=== PATIENT | female | born 1985 | race Caucasian/White ===

== ENCOUNTER 2017-04-17 08:19 | Emergency (ER) | payer BC ==
[2017-04-17 08:33] VITALS: BP 116/72; PULSE 101; TEMP 98.5; BMI 22.6
--- NOTE | 2017-04-17 08:47 | PDOC ---
History of Present Illness - General Chief Complaint: Chest Pain Stated Complaint: CHEST PAIN/ SOB Time Seen by Provider: 04/17/17 08:46 - History of Present Illness Initial Comments: 31 year old previously healthy female with Mirena IUD (place 2 years ago) presenting with sudden onset central chest pain and back pain with SOB and generalized warmth. States that it woke her up out of bed this AM and she felt generally warm and had trouble breathing. The chest pain is a central pressure 7 /10 and possibly radiates to the back. The chest pain is worse with cough and better when laying down but not better with leaning forward. Denies travel, recent illness, fevers, chills, nausea, vomiting, diarrhea, cough, or recent sick contacts. 04/17/17 10:44 Past History - Past Medical History Allergies/Adverse Reactions: Allergies Allergy/AdvReac Type Severity Reaction Status Date / Time No Known Allergies Allergy Verified 04/17/17 08:33 Home Medications: Ambulatory Orders NK [No Known Home Medication] 04/17/17 Asthma: No Cancer: No Cardiac Disorders: No COPD: No DVT: No Diabetes: No HTN: No Seizures: No Thyroid Disease: No - Reproductive History (#): 4 Para: 2 Cervical CA: No Dysfunctional Uterine Bleeding: No Ectopic : No Endometrial CA: No Polycystic Ovaries: No Therapeutic (s) & number: No Tubal Ligation: No Spontaneous : 1 - Immunization History Td Vaccination: Yes TDAP Vaccination: Yes Immunization Up to Date: Yes - Suicide/Smoking/Psychosocial Hx Smoking Status: No Smoking History: Never smoked Years of Tobacco Use: 0 Have you smoked in the past 12 months: No Number of Cigarettes Smoked Daily: 0 Cigars Per Day: 0 Information on smoking cessation initiated: No Hx Alcohol Use: No Drug/Substance Use Hx: No Substance Use Type: None Hx Substance Use Treatment: No Review of Systems - Review of Systems Constitutional: Yes: Other (warmth). No: Chills, Diaphoresis, Fever HEENTM: No: Blurred Vision, Double Vision Respiratory: Yes: Shortness of Breath. No: Cough Cardiac (ROS): Yes: Chest Pain. No: Edema, Irregular Heart Rate : No: Burning, Dysuria Musculoskeletal: Yes: Back Pain Integumentary: No: Bruising, Lesions Neurological: No: Headache, Numbness, Paresthesia Psychiatric: No: Anxiety, Depression Endocrine: No: Excessive Sweating, Intolerance to Cold Hematologic/Lymphatic: No: Blood Clots, Easy Bleeding, Easy Bruising *Physical Exam - Vital Signs Last Vital Signs Temp Pulse Resp BP Pulse Ox 98.5 F 101 H 16 116/72 100 04/17/17 08:29 04/17/17 08:29 04/17/17 08:29 04/17/17 08:29 04/17/17 08:29 - Physical Exam General Appearance: Yes: Nourished, Appropriately Dressed. No: Apparent Distress HEENT: positive: EOMI, MACARIO, Normal ENT Inspection, Normal Voice Neck: positive: Trachea midline, Normal Thyroid, Supple. negative: Tender, Rigid Respiratory/Chest: positive: Lungs Clear, Normal Breath Sounds. negative: Chest Tender, Respiratory Distress, Accessory Muscle Use Cardiovascular: positive: Regular Rhythm, Tachycardia. negative: Regular Rate Gastrointestinal/Abdominal: positive: Normal Bowel Sounds, Flat, Soft. negative : Tender Musculoskeletal: positive: Normal Inspection. negative: CVA Tenderness Extremity: positive: Normal Capillary Refill, Normal Inspection, Normal Range of Motion Integumentary: positive: Normal Color, Dry, Warm Neurologic: positive: Fully Oriented, Normal Mood/Affect, Normal Response, Motor Strength 5/5 ED Treatment Course - LABORATORY CBC & Chemistry Diagram: 04/17/17 09:45 04/17/17 09:45 Medical Decision Making - Medical Decision Making Healthy 31 year old female presenting with sudden onset chest pain, sob, and warmth with sinus tachycardia noted in our ED. D-dimer, troponins, and EKG WNL. CXR WNL, Labs WNL. Will send home with return precautions and follow up with PCP. 04/17/17 12:31 *DC/Admit/Observation/Transfer Diagnosis at time of Disposition: Chest pain Qualifiers: Chest pain type: chest pain on breathing Qualified Code(s): R07.1 - Chest pain on breathing - Discharge Dispostion Disposition: HOME Condition at time of disposition: Improved Admit: No - Referrals Referrals: Lorelei Turner MD [Primary Care Provider] - - Patient Instructions Printed Discharge Instructions: DI for Atypical Chest Pain Additional Instructions: Your labs were fine and your chest xray was also fine. You do not have a clot in your lung. Please follow up with your primary care physician within the next few days. Please return to the ED if you have worsening chest pain, fever, nausea, vomiting, or other concerning symptoms. - Post Discharge Activity
--- NOTE | 2017-04-17 08:54 | PDOC ---
Attending Attestation - Resident Resident Name: Tevin Mayfield - HPI HPI: 04/17/17 11:18 Pt presents to the ED complaining of chest pain and shortness of breath that awoke her from sleep at 5 am. Denies fever or cough. Denies prior history of similar pain. Patient is currently using Mirena for control. symptoms have improved while in the ED. 04/17/17 11:20 - Physicial Exam PE: 04/17/17 11:19 Agree with resident exam. Patient is no longer tachycardic, and is resting comfortably in the stretcher. Lungs are clear. Regular rate and rhythm on heart exam without murmurs rubs or gallops. - Medical Decision Making 04/17/17 11:20 Pt presents to the ED complaining of shortness of breath, chest pain and palpitations. Cannot rule out patient with PERC due to HR and exogenous estrogen, but she is low risk via wells criteria and D dimer is negative. PE is therefore unlikely. EKG is normal. Labs checked to rule out TX or severe anemia and are normal. Will check CXR, likely discharge home if negative.
[2017-04-17 09:59] LABS: HEMATOCRIT 40.1 % (32.4-45.2); HEMOGLOBIN 13.1 GM/dL (10.7-15.3); MCHC 32.6 g/dl (32.0-36.0); MEAN CELL VOLUME 85.9 fl (80-96); MEAN PLT VOLUME 8.7 fl (7.5-11.1); PLATELET COUNT 231 K/MM3 (134-434); RBC 4.67 M/mm3 (3.60-5.2); RDW 13.3 % (11.6-15.6); WHITE BLOOD COUNT 5.6 K/mm3 (4.0-10.0)
[2017-04-17 10:41] LABS: ALBUMIN 4.2 g/dl (3.4-5.0); ANION GAP 7 (8-16); BLOOD UREA NITROGEN 8 mg/dL (7-18); CALCIUM 8.7 mg/dL (8.5-10.1); CHLORIDE 105 mmol/L (98-107); CO2 27 mmol/L (21-32); CREATININE 0.6 mg/dL (0.55-1.02); GLUCOSE,RANDOM 83 mg/dL (74-106); POTASSIUM 4.1 mmol/L (3.5-5.1); SGOT/AST 8 U/L (15-37); SGPT/ALT 16 U/L (12-78); SODIUM 139 mmol/L (136-145)
[2017-04-17 10:47] LABS: ALK PHOS 56 U/L (45-117); BILIRUBIN,TOTAL 0.5 mg/dL (0.2-1.0); TOT PROT 7.5 g/dl (6.4-8.2)
[2017-04-17 14:11] LABS: URINE APPEARANCE SLCLOUDY; URINE BILIRUBIN NEGATIVE (NEGATIVE); URINE BLOOD 1+ (NEGATIVE); URINE COLOR LTYELLOW; URINE GLUCOSE (UA) NEGATIVE (NEGATIVE); URINE KETONE NEGATIVE (NEGATIVE); URINE NITRITE NEGATIVE (NEGATIVE); URINE PROTEIN NEGATIVE (NEGATIVE); URINE UROBILINOGEN NEGATIVE mg/dL (0.2-1.0)
[2017-04-17 14:26] LABS: URINE LEUK ESTERASE 3+ (NEGATIVE)
--- NOTE | 2017-04-18 12:40 | EKG ---
Test Reason : Blood Pressure : / mmHG Vent. Rate : 095 BPM Atrial Rate : 095 BPM P-R Int : 146 ms QRS Dur : 088 ms QT Int : 382 ms P-R-T Axes : 074 074 062 degrees QTc Int : 480 ms NORMAL SINUS RHYTHM PROLONGED QT ABNORMAL ECG WHEN COMPARED WITH ECG OF 30-JAN-2014 15:31, NO SIGNIFICANT CHANGE WAS FOUND Confirmed by WILLA MEDINA MD ([id number]) on 04/18/2017 12:40:03 PM Referred By: Confirmed By:WILLA MEDINA MD
== END 2017-04-17 12:41 | disposition home or self-care (01) ==
LOC: JER 08:19
DX: R07.1 Chest pain on breathing (principal)
CPT/HCPCS: 36415; 71046-TC-FY; 80053; 81003; 81015; 82550; 84484; 84702; 85027; 85379; 87077; 87086; 93005; 93010; 99282-25

== ENCOUNTER 2019-06-06 07:10 | Inpatient (IN) | payer BC ==
[2019-06-06 08:45] VITALS: BMI 30.2
[2019-06-06 09:04] LABS: BASO % 0.3 % (0-2.0); EOS % 0.4 % (0-4.5); HEMATOCRIT 33.2 % (32.4-45.2); HEMOGLOBIN 11.7 GM/dL (10.7-15.3); LYMPH % 15.7 % (8-40); MCH 31.9 pg (25.7-33.7); MCHC 35.1 g/dl (32.0-36.0); MEAN CELL VOLUME 90.9 fl (80-96); MEAN PLT VOLUME 8.4 fl (7.5-11.1); MONO % 8.6 % (3.8-10.2); PLATELET COUNT 216 K/MM3 (134-434); RBC 3.65 M/mm3 (3.60-5.2); RDW 13.3 % (11.6-15.6); WHITE BLOOD COUNT 7.5 K/mm3 (4.0-10.0)
[2019-06-06 09:15] LABS: INR 1.04 (0.83-1.09); PROTHROMBIN TIME (PATIENT) 12.3 SEC (9.7-13.0)
[2019-06-06 09:18] LABS: ACTIVATED PTT 29.3 SECONDS (25.2-36.5)
[2019-06-06 09:27] LABS: BLOOD UREA NITROGEN 3.6 mg/dL (7-18); CALCIUM 8.4 mg/dL (8.5-10.1); CREATININE 0.4 mg/dL (0.55-1.3); POTASSIUM 3.6 mmol/L (3.5-5.1)
[2019-06-06] MEDS ORDERED: DINOPROSTONE 10 MG VAGINAL SUPPOSITORY VG ONE (09:50)
--- NOTE | 2019-06-06 09:56 | HP ---
Past Medical History - Primary Care Physician PCP:: Sanju Barba - Admission Chief Complaint: 39,6 weeks, multiparity , for induction History Source: Patient Limitations to Obtaining History: No Limitations - Past Medical History ...: 5 ...Para: 3 ...Term: 3 ...: 1 ...Spon : 0 ...Induced : 0 ...Multiple Gestation: 1 ...LMP: 09/01/18 ... Weeks Gestation by Dates: 39.5 ...EDC by Dates: 06/07/18 ...EDC by Sono: 06/07/18 - Past Surgical History Hx Myomectomy: No Hx Transabdominal Cerclage: No - Smoking History Smoking history: Never smoked Have you smoked in the past 12 months: No Aproximately how many cigarettes per day: 0 - Alcohol/Substance Use Hx Alcohol Use: No - Social History Usual Living Arrangement: Yes: With Spouse ADL: Independent Occupation: homemaker History of Recent Travel: No Home Medications - Allergies Allergies/Adverse Reactions: Allergies Allergy/AdvReac Type Severity Reaction Status Date / Time No Known Allergies Allergy Verified 04/17/17 08:33 - Home Medications Home Medications: Ambulatory Orders NK [No Known Home Medication] 04/17/17 Review of Systems - Review of Systems Constitutional: reports: No Symptoms Eyes: reports: No Symptoms HENT: reports: No Symptoms Neck: reports: No Symptoms Cardiovascular: reports: No Symptoms Respiratory: reports: No Symptoms Gastrointestinal: reports: No Symptoms Genitourinary: reports: No Symptoms Breasts: reports: No Symptoms Reported Musculoskeletal: reports: No Symptoms Integumentary: reports: No Symptoms Neurological: reports: No Symptoms Endocrine: reports: No Symptoms Hematology/Lymphatic: reports: No Symptoms Psychiatric: reports: No Symptoms Physical Exam - Maternity Vital Signs: Vital Signs Temperature 98.6 F 06/06/19 08:30 Pulse Rate 101 H 06/06/19 08:30 Respiratory Rate 18 06/06/19 08:30 Blood Pressure 96/56 L 06/06/19 08:30 O2 Sat by Pulse Oximetry (%) Constitutional: Yes: Well Nourished, No Distress, Calm Eyes: Yes: WNL, Conjunctiva Clear, EOM Intact HENT: Yes: WNL, Atraumatic, Normocephalic Neck: Yes: WNL, Supple, Trachea Midline Cardiovascular: Yes: WNL, Regular Rate and Rhythm Breast(s): Yes: WNL - Abdominal Exam/OB Fundal Height: 40 Number of Fetuses: Single Presentation: Vertex Contractions: No Intensity: Unaware Monitor Mode: External Heart Rate Location: [facility] Category: I Accelerations: Non-Uniform Decelerations: None - Vaginal Exam/OB Vaginal Bleediing: No Speculum Exam: No Dilatation (cm): 1 cm Effacement (%): 25 Amniotic Membrane Status: Intact Station: -4 - Physical Exam Edema: LLE: Trace, RLE: Trace Integumentary: Yes: WNL Deep Tendon Reflex Grade: Normal +2 Psychiatric: Yes: WNL - Labs Lab Results: CBC, BMP 06/06/19 08:45 06/06/19 08:45 Hemorrhage Risk Assessment - Risk Factors Medium Risk Factors: Yes: Multiple gestation Risk Score: 1 Risk Level: Medium Risk Problem List - Problems (1) with 39 completed weeks gestation Code(s): Z3A.39 - 39 WEEKS GESTATION OF (2) Elective induction of labor planned Code(s): CBJ1605 - Assessment/Plan admit for cervidil induction
--- NOTE | 2019-06-06 17:16 | PN ---
Progress Note (short form) - Note Progress Note: cx 2 cm 50 vx -3 mi, fhr cat 1, irregular contraction Problem List - Problems (1) with 39 completed weeks gestation Code(s): Z3A.39 - 39 WEEKS GESTATION OF (2) Elective induction of labor planned Code(s): [id number] -
[2019-06-06] MEDS ORDERED: PROMETHAZINE HCL 25 MG/1 ML VIAL IVPUSH ONE (21:19)
[2019-06-06] MEDS: DEXTROSE 5%-LACTATED RINGERS 1,000 ML IV SCH (21:30)
[2019-06-06] MEDS ORDERED: BUTORPHANOL TARTRATE 1 MG/ML VIAL IVPUSH ONE (21:30)
[2019-06-06] MEDS ORDERED: AMPICILLIN SODIUM 2 GM VIAL ONE (22:22)
[2019-06-06] MEDS ORDERED: OXYTOCIN 20 UNITS in 0.9% NS 20 UNIT/1,000 ML INFUS.BAG IV ONE (22:23)
[2019-06-06] MEDS ORDERED: AMPICILLIN - 2 GM in SODIUM CHLORIDE 100 ML IVPB STA (23:00)
[2019-06-07] MEDS ORDERED: CITRIC ACID/SODIUM CITRATE 30 ML UNIT-DOSE CUP PO ONE (02:00)
[2019-06-07] MEDS ORDERED: OXYTOCIN 30 UNITS in 0.9% NS 30 UNIT/500 ML INFUS.BAG IVPB SCH (02:00)
[2019-06-07] MEDS: DEXTROSE 5%-LACTATED RINGERS 1,000 ML IV SCH (05:00)
[2019-06-07] MEDS: AMPICILLIN - 1 GM in SODIUM CHLORIDE 100 ML IVPB SCH ×5 (06:11→17:28)
[2019-06-07] MEDS ORDERED: OXYTOCIN 30 UNITS in 0.9% NS 30 UNIT/500 ML INFUS.BAG IVPB ONE (08:21)
[2019-06-07] MEDS ORDERED: AMPICILLIN SODIUM 1 GM VIAL ONE ×2 (09:06→13:10)
--- NOTE | 2019-06-07 09:10 | PN ---
Progress Note (short form) - Note Progress Note: cx 3 cm 80 vx -2 fhr cat 1, irregular contraction, AROM clear. Problem List - Problems (1) with 39 completed weeks gestation Code(s): Z3A.39 - 39 WEEKS GESTATION OF (2) Elective induction of labor planned Code(s): [id number] -
[2019-06-07] MEDS ORDERED: PROMETHAZINE HCL 25 MG/1 ML VIAL ONE ×2 (11:57→15:57)
[2019-06-07] MEDS ORDERED: BUTORPHANOL TARTRATE 1 MG/ML VIAL ONE ×4 (11:57→15:57)
[2019-06-07] MEDS ORDERED: PROMETHAZINE HCL 25 MG/1 ML VIAL IVPB ONE (16:45)
[2019-06-07] MEDS ORDERED: BUTORPHANOL TARTRATE 1 MG/ML VIAL IVPB ONE (16:45)
[2019-06-07] MEDS ORDERED: BENZOCAINE 20% 57 GM BOTTLE TP PRN (17:07)
[2019-06-07] MEDS ORDERED: METHYLERGONOVINE MALEATE 0.2 MG/1 ML AMP IM PRN (17:07)
[2019-06-07] MEDS ORDERED: BISACODYL 10 MG SUPP.RECT RC PRN (17:07)
[2019-06-07] MEDS ORDERED: BENZOCAINE 28 GM HEMORRHOIDAL OINTMENT TP PRN (17:07)
[2019-06-07] MEDS ORDERED: WITCH HAZEL 50% (TUCKS) 40 PAD/JAR PAD TP PRN (17:07)
[2019-06-07] MEDS ORDERED: IBUPROFEN 600 MG TABLET (FP) PO PRN (17:07)
[2019-06-07] MEDS ORDERED: ACETAMINOPHEN 325 MG TABLET (FP) PO PRN (17:07)
[2019-06-07] MEDS ORDERED: OXYTOCIN 20 UNITS in 0.9% NS 20 UNIT/1,000 ML INFUS.BAG IV SCH (17:15)
[2019-06-07] MEDS ORDERED: OXYTOCIN 20 UNITS in 0.9% NS 20 UNIT/1,000 ML INFUS.BAG IV ONE (17:22)
[2019-06-07] MEDS: FERROUS SO4 325 MG TABLET (FP) PO SCH (17:28)
--- NOTE | 2019-06-07 18:31 | PN ---
Delivery - Delivery Vaginal Delivery: Spontaneous (cx full , head delivered , nasopharynx suctioned , ant. and post. shoulder with no difficulty . live baby girl 9/9, no laceration, ebl 300 cc , no complication . baby bonded with mom) Type of Anesthesia: None Episiotomy/Laceration: None EBL (cc): 300 Delivery, Single - Stages of Labor Date 1st Stage Initiatied: 06/07/19 Time 1st Stage Initiated: 11:45 Date 2nd Stage Initiated: 06/07/19 Time 2nd Stage Initiated: 17:00 Date of Delivery: 06/07/19 Time of Delivery: 17:09 Time Placenta Delivered: 17:12 - Condition of Carbonizer/Emergency Room Specialist Present: No Gender: Female Weight: 7 lb 8 oz Position: OA Total Hours ROM (Hrs/Mins): 8 hrs 15 minutes - 1 Minute Total Score: 9 5 Minutes Total Score: 9 - [place] Feeding Plan Initial Plan: Elected not to breastfeed exclusively throughout hospitalization
[2019-06-08] MEDS: FERROUS SO4 325 MG TABLET (FP) PO SCH ×2 (08:54→17:26)
[2019-06-08 08:59] LABS: BASO % 0.9 % (0-2.0); EOS % 0.4 % (0-4.5); HEMATOCRIT 37.4 % (32.4-45.2); HEMOGLOBIN 12.8 GM/dL (10.7-15.3); MCH 31.5 pg (25.7-33.7); MCHC 34.1 g/dl (32.0-36.0); MEAN CELL VOLUME 92.3 fl (80-96); MEAN PLT VOLUME 8.8 fl (7.5-11.1); MONO % 8.4 % (3.8-10.2); NEUT % 78.3 % (42.8-82.8); PLATELET COUNT 224 K/MM3 (134-434); RBC 4.05 M/mm3 (3.60-5.2); RDW 13.4 % (11.6-15.6); WHITE BLOOD COUNT 12.1 K/mm3 (4.0-10.0)
[2019-06-08] MEDS: PRENATAL VITAMINS W/ FOLIC ACID TABLET (FP) PO SCH (09:58)
--- NOTE | 2019-06-08 11:20 | PN ---
Post Progress Note - Subjective Subjective: Pain controlled. No fevers/chills. Bleeding less than menses. Post Day: 1 Type of Delivery: Vital Signs: Vital Signs Temperature 97.6 F 06/08/19 09:30 Pulse Rate 86 06/08/19 09:30 Respiratory Rate 20 06/08/19 09:30 Blood Pressure 103/59 L 06/08/19 09:30 O2 Sat by Pulse Oximetry (%) 98 06/07/19 18:00 Uterus: Yes: Fundus below umbilicus Incision: Yes: Dressing dry and intact Abdomen/GI: Yes: Abdomen soft, Tolerating PO Lochia: Yes: Rubra Lochia, amount: Small Extremities: Yes: Calves non-tender Activity: Ambulating - Labs Labs: CBC WBC 12.1 K/mm3 (4.0-10.0) H 06/08/19 08:35 RBC 4.05 M/mm3 (3.60-5.2) 06/08/19 08:35 Hgb 12.8 GM/dL (10.7-15.3) 06/08/19 08:35 Hct 37.4 % (32.4-45.2) 06/08/19 08:35 MCV 92.3 fl (80-96) 06/08/19 08:35 MCH 31.5 pg (25.7-33.7) 06/08/19 08:35 MCHC 34.1 g/dl (32.0-36.0) 06/08/19 08:35 RDW 13.4 % (11.6-15.6) 06/08/19 08:35 Plt Count 224 K/MM3 (134-434) 06/08/19 08:35 MPV 8.8 fl (7.5-11.1) 06/08/19 08:35 Absolute Neuts (auto) 9.5 K/mm3 (1.5-8.0) H 06/08/19 08:35 Neutrophils % 78.3 % (42.8-82.8) 06/08/19 08:35 Lymphocytes % 12.0 % (8-40) D 06/08/19 08:35 Monocytes % 8.4 % (3.8-10.2) 06/08/19 08:35 Eosinophils % 0.4 % (0-4.5) 06/08/19 08:35 Basophils % 0.9 % (0-2.0) 06/08/19 08:35 Nucleated RBC % 0 % (0-0) 06/08/19 08:35 Assessment/Plan 33yo s/p , PPD#1 Routine PP care PO pain control Labs reviewed D/C to home tomorrow Tate Villanueva MD
[2019-06-08] MEDS ORDERED: SENNOSIDES/DOCUSATE COMBO (SENNA PLUS) TABLET (UD) PO PRN (22:00)
[2019-06-09] MEDS: FERROUS SO4 325 MG TABLET (FP) PO SCH (08:48)
[2019-06-09] MEDS: PRENATAL VITAMINS W/ FOLIC ACID TABLET (FP) PO SCH (09:39)
[2019-06-09 10:27] VITALS: BP 113/58; PULSE 77; TEMP 98.2
--- NOTE | 2019-06-09 19:03 | DS ---
Physical Exam-METAL BENDING MACHINE OPERATOR Vital Signs: Vital Signs Temperature 98.2 F 06/09/19 10:00 Pulse Rate 77 06/09/19 10:00 Respiratory Rate 18 06/09/19 10:00 Blood Pressure 113/58 L 06/09/19 10:00 O2 Sat by Pulse Oximetry (%) 98 06/07/19 18:00 Constitutional: Yes: Well Nourished, No Distress, Calm Eyes: Yes: WNL, Conjunctiva Clear, EOM Intact HENT: Yes: WNL, Atraumatic, Normocephalic Neck: Yes: WNL, Supple, Trachea Midline Cardiovascular: Yes: WNL, Regular Rate and Rhythm Respiratory: Yes: WNL, Regular, CTA Bilaterally Gastrointestinal: Yes: WNL ...Rectal Exam: Yes: WNL Renal/: Yes: WNL ....Post : Yes: Uterus firm, Uterus non-tender, Slight lochia rubra Breast(s): Yes: WNL Musculoskeletal: Yes: WNL Extremities: Yes: WNL Integumentary: Yes: WNL Neurological: Yes: WNL, Alert, Oriented ...Motor Strength: WNL Psychiatric: Yes: WNL, Alert, Oriented Labs: CBC, BMP 06/08/19 08:35 06/06/19 08:45 Delivery - Delivery Vaginal Delivery: Spontaneous (cx full , head delivered , nasopharynx suctioned , ant. and post. shoulder with no difficulty . live baby girl 9/9, no laceration, ebl 300 cc , no complication . baby bonded with mom) Type of Anesthesia: None Episiotomy/Laceration: None EBL (cc): 300 Delivery, Single - Stages of Labor Date 1st Stage Initiatied: 06/07/19 Time 1st Stage Initiated: 11:45 Date 2nd Stage Initiated: 06/07/19 Time 2nd Stage Initiated: 17:00 Date of Delivery: 06/07/19 Time of Delivery: 17:09 Time Placenta Delivered: 17:12 Placenta: Yes: Spontaneous - Condition of Credit Cashier/Referral And Information Aide Present: No Gender: Female Weight: 7 lb 8 oz Position: OA Total Hours ROM (Hrs/Mins): 8 hrs 15 minutes - 1 Minute Total Score: 9 5 Minutes Total Score: 9 - [place] Feeding Plan Initial Plan: Elected not to breastfeed exclusively throughout hospitalization Discharge Summary Problems reviewed: Yes Reason For Visit: INDUCTION Procedures: Principal: Hospital Course: no complication Condition: Stable - Instructions Diet, Activity, Other Instructions: Regular Diet Follow up in 3-4 weeks for your visit Referrals: Sanju Barba MD [Staff Physician] - Disposition: HOME - Home Medications Comprehensive Discharge Medication List: Ambulatory Orders Pnv No.95/Ferrous Fum/Folic AC [ Formula] 1 each PO DAILY 06/06/19 Breast Pump 1 each MC 5XD 30 Days #1 each 06/07/19 Ibuprofen 600 mg PO Q6H PRN #30 tablet 06/07/19
== END 2019-06-09 12:55 | disposition home or self-care (01) | DRG 807 ==
LOC: JLDR 07:10 → J3W 06-07 19:37
PROVIDERS: ADMIT Obstetrics & Gynecology; ATTEND Obstetrics & Gynecology
PROC: 3E0P7VZ Introduction of Hormone into Female Reproductive, Via Natural or Artificial Opening (ICD-10-PCS; principal; 2019-06-06)
PROC: 10E0XZZ Delivery of Products of Conception, External Approach (ICD-10-PCS; 2019-06-07)
DX: O80 Encounter for full-term uncomplicated delivery (principal); Z37.0 Single live birth; Z3A.39 39 weeks gestation of pregnancy
CPT/HCPCS: 36415; 36600; 59409; 80048; 82803; 85025; 85610; 85730; 86850; 86900; 86901

== ENCOUNTER 2020-08-23 04:45 | Day surgery (SDC) | payer BC ==
[2020-08-22 12:23] VITALS: BMI 26.6
[2020-08-23] MEDS ORDERED: BUPIVACAINE HCL/PF 0.25% (2.5MG/ML) 10 ML VIAL ONE (07:18)
[2020-08-23] MEDS ORDERED: LIDOCAINE HCL/PF 2% SDV 5ML VIAL ONE (07:55)
[2020-08-23] MEDS ORDERED: ROCURONIUM BROMIDE 50 MG/5 ML SYRINGE ONE (07:56)
[2020-08-23] MEDS ORDERED: MIDAZOLAM HCL 2 MG/2 ML SINGLE DOSE VIAL ONE (07:56)
[2020-08-23] MEDS ORDERED: PROPOFOL 20 ML ONE ×2 (07:56→07:59)
[2020-08-23] MEDS ORDERED: DEXAMETHASONE SOD PHOSPHATE 4 MG/1 ML VIAL ONE (08:26)
[2020-08-23] MEDS ORDERED: NEOSTIGMINE METHYLSULFATE 0.5 MG/ML - 10 ML MDV ONE (08:33)
[2020-08-23] MEDS ORDERED: GLYCOPYRROLATE 0.2 MG/1 ML VIAL ONE (08:33)
[2020-08-23] MEDS ORDERED: BUPIVACAINE HCL/PF 0.25% (2.5MG/ML) 10 ML VIAL IJ ONE (08:41)
[2020-08-23] MEDS ORDERED: ONDANSETRON 4 MG/2 ML VIAL IVPUSH PRN (09:09)
[2020-08-23] MEDS ORDERED: IBUPROFEN 800 MG/8 ML IJ IVPB PRN (09:09)
[2020-08-23] MEDS ORDERED: oxyCODONE HCL 5 MG TABLET PO PRN (09:09)
[2020-08-23] MEDS ORDERED: ACETAMINOPHEN 1000 MG/100 ML VIAL (NON FORMULARY) IVPB PRN (09:10)
[2020-08-23] MEDS ORDERED: LACTATED RINGERS SOLUTION 1,000 ML IV SCH (09:15)
[2020-08-23] MEDS ORDERED: ACETAMINOPHEN 1000 MG/100 ML VIAL (NON FORMULARY) IVPB ONE (10:33)
[2020-08-23 12:07] VITALS: TEMP 98
[2020-08-23 13:56] VITALS: BP 110/69; PULSE 78
== END 2020-08-23 13:25 | disposition home or self-care (01) ==
LOC: JASU-SURG 04:45
PROVIDERS: ATTEND Obstetrics & Gynecology
PROC: 0UT74ZZ Resection of Bilateral Fallopian Tubes, Percutaneous Endoscopic Approach (ICD-10-PCS; principal; 2020-08-23 08:00)
PROC: 0UPD7HZ Removal of Contraceptive Device from Uterus and Cervix, Via Natural or Artificial Opening (ICD-10-PCS; 2020-08-23 08:00)
DX: Z30.2 Encounter for sterilization (principal)
CPT/HCPCS: 88300-TC; 88302-TC; 94760; J0131